=== PATIENT | male | born 1950 | race Caucasian/White ===

== ENCOUNTER 2018-12-24 15:36 | Observation (INO) | payer OTHER, MEDICARE ==
[~2018-12-24 15:36] MED LIST: Iopamidol 370 76% 100 ML VIAL ONE
[2018-12-24 15:58] LABS: #Eosinphils 0.2 thou/uL (0.0-0.7); #Lymphocytes 1.7 thou/uL (1.20-3.40); #Monocytes 0.5 thou/uL (0.11-0.59); #Neutrophils 2.8 thou/uL (1.40-6.50); %Basophils 0.9 % (0.0-1.0); %Eosinophils 4.6 % (0.0-10.0); %Lymphocytes 32.3 % (21.0-51.0); %Monocytes 9.1 % (0.0-10.0); %Neutrophils 53.1 % (42.0-75.0); Hemoglobin 14.1 g/dL (14.0-18.0); Mean Corpuscular HGB CONC 33.7 g/dL (32.0-36.0); Mean Corpuscular Hemoglobin 30.8 pg (27.0-31.0); Mean Corpuscular Volume 91.6 fL (78.0-98.0); Mean Platelet Volume 7.9 fL (7.4-10.4); Platelet Count 255 thou/uL (130-400); RBC Distribution Width 13.1 % (11.5-14.5); Red Blood Cell (RBC) Count 4.59 mill/uL (4.70-6.10); White Blood Cell (WBC) Count 5.2 thou/uL (4.8-10.8)
[2018-12-24 16:08] LABS: INR-International Normal Ratio 2.5; PTT 46.3 SEC (22.9-36.1); Prothrombin Time 26.7 SEC (12.0-14.7)
[2018-12-24] MEDS ORDERED: Nitroglycerin 100MG/250ML BOT 250 ML ONE (16:09)
[2018-12-24] MEDS ORDERED: Verapamil 5 MG/2 ML VIAL ONE (16:09)
[2018-12-24] MEDS ORDERED: Heparin 10,000 UNITS/1 ML VIAL ONE (16:09)
[2018-12-24 16:13] LABS: ALT (SGPT) 33 U/L (8-55); AST (SGOT) 27 U/L (5-34); Albumin 4.3 g/dL (3.4-4.8); Alkaline Phosphatase 64 U/L (40-150); Anion Gap 16 mmol/L (10-20); BUN (Urea Nitrogen) 27 mg/dL (8.4-25.7); Bilirubin, Total 0.5 mg/dL (0.2-1.2); CK (CPK) 347 U/L (30-200); Calc. Creatinine Clearance 0 mL/min (70-130); Calcium 9.8 mg/dL (7.8-10.44); Carbon Dioxide 19 mmol/L (23-31); Chloride 104 mmol/L (98-107); Estimated GFR-MDRD 55; Globulin 3.5 g/dL (2.4-3.5); Glucose 126 mg/dL (80-115); Lipase 113 U/L (8-78); Potassium 3.9 mmol/L (3.5-5.1); Protein, Total 7.8 g/dL (5.8-8.1); Sodium 135 mmol/L (136-145)
--- NOTE | 2018-12-24 17:34 | RAD ---
PORTABLE CHEST 12/24/18 PROVIDED CLINICAL HISTORY: Chest pain. FINDINGS: No comparisons. The cardiac silhouette appears enlarged, which may be at least partially on the basis of portable technique. Median sternotomy changes and changes of prior cardiac valve replacement are noted. External defibrillator pad overlies the right chest. No focal consolidation, pleural fluid or pneumothorax apparent. IMPRESSION: No evidence for an acute cardiopulmonary process. POS: [facility]
[2018-12-24 18:18] VITALS: BMI 35.2
[2018-12-24] MEDS ORDERED: Sodium Chloride 0.9% 1,000 ML IV SCH (18:35)
[2018-12-24] MEDS ORDERED: Nitroglycerin 0.4 MG TAB (25 Tab Bottle) SL PRN (18:35)
[2018-12-24] MEDS ORDERED: Dextrose 5% in Water 1,000 ML IV PRN (21:12)
[2018-12-24] MEDS ORDERED: HumaLOG 300 UNITS/3 ML VIAL SC PRN ×2 (21:12)
[2018-12-24] MEDS ORDERED: Dextrose 50% Abboject 50 ML SYRINGE SLOW IVP PRN (21:12)
[2018-12-24] MEDS ORDERED: Zolpidem Tartrate 5 MG TAB PO PRN (21:12)
--- NOTE | 2018-12-24 21:12 | PDOC.EVN ---
Event Note - Event Note Event Note: CONSULT #[id number]
[2018-12-24] MEDS ORDERED: Ondansetron PF 4 MG/2 ML Vial IVP PRN (21:13)
[2018-12-24] MEDS ORDERED: Acetaminophen 325 MG TAB PO PRN (21:13)
[2018-12-24] MEDS ORDERED: Warfarin Sodium 10 MG TAB PO SCH (22:30)
--- NOTE | 2018-12-24 22:55 | CON ---
DATE OF CONSULTATION: CHIEF COMPLAINT: Chest pain. Consultation being requested by Cardiology service. HISTORY OF PRESENT ILLNESS: This is a 68-year-old male presenting to the hospital with chest pain. The patient was taken to the yard labor supervisor, had a cardiac catheterization done, was found to have 30% stenosis of the left proximal lesion, lesion in the distal RCA of 30% as well and lesion in proximal RCA of 20% stenosis. No stenting was done. The patient at point in time of evaluation in consultation was having no issues or complaints. No chest pain, fevers, shortness of breath, diarrhea, constipation, or abdominal pain. The patient stated that he had a prior medical history of diabetes mellitus, hypertension, hyperlipidemia, as well as a mechanical aortic valve, which was done in 2012. The patient takes warfarin 10 mg daily. Of note, the patient had an INR checked approximately on the 16 of December, which was 2.5. 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 The patient is seen and examined in the patient's room. at bedside. All questions answered. ALLERGIES: NO KNOWN DRUG ALLERGIES. HOME MEDICATIONS: See MAR. FAMILY HISTORY: Positive for hypertension and diabetes. REVIEW OF SYSTEMS: All systems reviewed, pertinent positive in HPI, otherwise negative. PHYSICAL EXAMINATION: VITAL SIGNS: Blood pressure 120/78, temperature of 98.1, heart rate of 66, respiratory rate of 20, O2 saturation 95% on room air. GENERAL: The patient is lying in bed. No acute discomfort. HEENT: Pupils are equal, round, and reactive to light and accommodation. Extraocular muscles intact. Oral cavity moist and pink. NECK: Supple, mobile, nontender. Thyroid appreciated. PULMONARY: Regular respiratory rate. No increase in AP diameter. Clear to auscultation bilaterally. CARDIOVASCULAR: Well-healed surgical scar on sternum noted. S1 and S2. No rubs or gallops. 2/6 systolic ejection murmur appreciated. ABDOMEN: Distended. Positive bowel sounds. Soft, nontender, and rotund. No rebound or guarding. EXTREMITIES: Trace pitting edema. 2+ peripheral pulses noted. NEUROLOGICAL: Cranial nerves 2 through 12 intact. No loss of motor and sensory function. LABORATORY DATA: CBC reviewed. Coagulation panel reviewed. Chemistry panel reviewed. Chest x-ray reviewed. ASSESSMENT: 1. Chest pain. 2. Mechanical aortic valve. 3. Hypertension. 4. Diabetes mellitus type 2. 5. Hyperlipidemia. PLAN: At this point in time, we would continue the patient's home medications. We will provide the patient warfarin. We will also start a sliding scale for his diabetes. INR showed 2.5. We will continue home warfarin. Further management per Cardiology Services. Possible discharge for tomorrow if the patient is stable. Appreciate the consultation. We will follow this patient closely with you, manage diabetic sugars. Case and plan discussed with the patient and at length. They understand and agree with this plan. Job ID: [id number]
--- NOTE | 2018-12-24 23:07 | HP ---
INDICATION FOR ADMISSION: A 68-year-old gentleman who has a history of aortic valve replacement with mechanical aortic valve. Today, he taking pictures of braga and suddenly developed chest pain with shortness of breath radiating to the left arm and to the shoulder. He felt like he was going to pass out. He sat down. He was given aspirin. EMS was called. He was then given nitroglycerin. He felt clammy and diaphoretic. The first EKG showed significant EKG changes with ST-segment depression in the inferior lateral leads and also slight ST elevation in V1 with depressed ST segments in V2 through V6. He presented to the emergency room. He was feeling better. EKG had stabilized, but given the fact that the patient had significant chest pain and EKG changes with a history of some coronary artery disease in the past with aortic valve replacement, he was advised to undergo cardiac catheterization on urgent basis. He was taken to the cardiac landscaping and groundskeeping laborer, where he was prepped and draped in the sterile fashion. The patient was on Coumadin and then using a right radial artery approach, 5-Lebanese introducer sheath was placed in the right radial artery. Using a 4-Lebanese catheter, the procedure was performed and this will follow in the cardiac cath report. Fortunately, there was no significant stenosis noted in the vessels and this will be detailed later. PAST MEDICAL HISTORY: Significant for aortic valve replacement in 2013 due to aortic valve regurgitation. He has also has a left foot ganglion cyst, for which he needs to undergo surgical repair next week. He has had a history of hypertension, hypercholesterolemia, and diabetes. SOCIAL HISTORY: He is . He has 5 children. No heart problems. He has no tobacco or alcohol use. He is retired. FAMILY HISTORY: Noncontributory. ALLERGIES: NONE. PRESENT MEDICATIONS: Include; 1. Coumadin or warfarin 10 mg a day. 2. Lisinopril. 3. Levothyroxine. 4. metformin 5. Tresiba. REVIEW OF SYSTEMS: A 12-point review of systems unremarkable except for what was noted today. PHYSICAL EXAMINATION: GENERAL: Reveals a well-developed, well-nourished gentleman. VITAL SIGNS: Blood pressure 128/84, heart rate was 68. HEENT: Shows head to be normocephalic and atraumatic. Carotid pulses are present. No bruits. CHEST: Clear to auscultation without rales, rhonchi, or wheezing. CARDIOVASCULAR: Reveals a regular rate and rhythm. The aortic valve was audible with clicking noise due to mechanical valve. There were no heaves, thrills, bruits, or rubs noted. ABDOMEN: Soft and nontender with positive bowel sounds. EXTREMITIES: Show no clubbing, cyanosis, or edema. Pedal pulses are difficult to palpate, but femorals and popliteal pulses are normal. The radial pulse is normal. NEUROLOGIC: The patient appears to be intact. SKIN: Warm and dry. IMAGING STUDIES: EKG in the emergency room shows resolution of the EKG changes with no significant EKG changes at this time. The patient has resolved with his chest discomfort. He is from [place] of town and given the fact that this was significant EKG changes and appeared to be unstable angina symptoms, he was advised to undergo cardiac catheterization. He was taken to the cardiac landscaping and groundskeeping laborer and prepped and draped in the sterile fashion. The findings were as follows; he had plaque calcifications noted in the left main, left anterior descending artery, proximal left circumflex, and also right coronary artery from the proximal to distal area. He had no significant flow-limiting disease in the left anterior descending or diagonal branches. There were small diagonal branches. The left circumflex had calcifications and 20% to 30% proximal stenosis, but no distal disease was noted. The obtuse marginal branches are free of any significant flow-limiting disease. The right coronary artery also had tortuosity in the proximal area with some luminal irregularities and distally 20% to 30% stenosis with diffuse irregularities in the distal right coronary artery. There was no evidence of any other significant stenosis noted in the vessels and the posterior lateral branch and posterior descending arteries appeared to be free of any significant stenosis or disease. There was no left ventriculogram performed as the patient does have mechanical aortic valve. We did not want to cross the valve with any type of catheter. IMPRESSION: Acute coronary syndrome, which was relieved. The patient was given aspirin and nitroglycerin and possibly had a small blood clot or plaque disruption, but there is no evidence of any significant stenosis or occlusion at this time and his EKG changes have resolved. We will continue to monitor the patient overnight on the telemetry floor. We will continue to monitor enzymes. At this time, the patient fortunately has stabilized. We will ask the Hospitalist Service to take over the care of the patient since his coronary artery status appears to be stable. Job ID: [id number] MTDD
[2018-12-25 05:39] LABS: #Eosinphils 0.2 thou/uL (0.0-0.7); #Monocytes 0.5 thou/uL (0.11-0.59); #Neutrophils 3.3 thou/uL (1.40-6.50); %Basophils 0.5 % (0.0-1.0); %Eosinophils 4.8 % (0.0-10.0); %Lymphocytes 19.6 % (21.0-51.0); %Monocytes 9.6 % (0.0-10.0); %Neutrophils 65.5 % (42.0-75.0); Hemoglobin 13.5 g/dL (14.0-18.0); Mean Corpuscular HGB CONC 34.4 g/dL (32.0-36.0); Mean Corpuscular Hemoglobin 31.7 pg (27.0-31.0); Mean Corpuscular Volume 92.1 fL (78.0-98.0); Mean Platelet Volume 8.2 fL (7.4-10.4); Platelet Count 228 thou/uL (130-400); Red Blood Cell (RBC) Count 4.25 mill/uL (4.70-6.10)
[2018-12-25 06:02] LABS: ALT (SGPT) 28 U/L (8-55); AST (SGOT) 23 U/L (5-34); Albumin 3.8 g/dL (3.4-4.8); Alkaline Phosphatase 59 U/L (40-150); Anion Gap 11 mmol/L (10-20); BUN (Urea Nitrogen) 22 mg/dL (8.4-25.7); Bilirubin, Total 0.5 mg/dL (0.2-1.2); Calc. Creatinine Clearance 96 mL/min (70-130); Calcium 9.2 mg/dL (7.8-10.44); Carbon Dioxide 22 mmol/L (23-31); Chloride 103 mmol/L (98-107); Estimated GFR-MDRD 68; Glucose 147 mg/dL (80-115); Potassium 3.8 mmol/L (3.5-5.1); Protein, Total 6.8 g/dL (5.8-8.1); Sodium 132 mmol/L (136-145)
[2018-12-25] MEDS ORDERED: INSULIN GLARGINE SC SCH (09:00)
[2018-12-25] MEDS ORDERED: Aspirin Chewable 81 MG TAB PO SCH (09:00)
--- NOTE | 2018-12-25 10:46 | PDOC.CTH ---
Cardiology Progress Note - Subjective The pt seen and examined. No overnight events. No cardiac complaints. - Objective Vital Signs Temp Pulse Resp BP BP Pulse Ox 12/25/18 08:00 97.6 F 61 22 H 133/79 96 12/25/18 06:10 95 12/25/18 05:00 94 L 12/25/18 04:44 96 12/25/18 04:05 97.9 F 66 17 120/79 96 12/25/18 00:12 95 12/24/18 23:35 98.5 F 69 20 126/72 96 12/24/18 22:48 94 L Weight 231 lb 14.4 oz 12/24/18 12/25/18 12/26/18 06:59 06:59 06:59 Intake Total 240 Output Total 2100 Balance -1860 - Physical Examination General/Neuro: alert & oriented x3 Neck: no JVD present Lungs: CTA Heart: RRR Abdomen: soft Extremities: other: (No edema) - Telemetry Telemetry Rhythm: SR - Labs Result Diagrams: 12/25/18 04:59 12/25/18 04:59 Troponin/CKMB Troponin I 0.013 ng/mL (< 0.028) 12/24/18 15:47 - Assessment/Plan 1. CAD with S/p LHC with 30% stenosis in dist RCA, 30% in Lt Cx, and no stenosis in LAD - stable; on ASA. 2. Hx of mechanical AVR in 2012 - on Coumadin 3. HTN - stable; will resume Lisinopril at discharge 4. Hyperlipidemia - on 5. DM type 2 - managed by PCP MAR reviewed * From Cardiac standpoint, the pt is stable to d/c home. The pt will F/u with his Bio Medical Technician in [place], [place] * The prescription of NTG 0.4mg will given to the pt at discharge. Pt. seen and eval. by me. I agree with the A/P by the REPAIR SERVICE DISPATCHER. No further CP. Chest clear. RRR Ok to d/c pt. to home. 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 Review of Systems - Review of Systems Constitutional: reports: no symptoms reported EENTM: reports: no symptoms reported Respiratory: reports: no symptoms reported Cardiac (ROS): reports: no symptoms reported ABD/GI: reports: no symptoms reported : reports: no symptoms reported Musculoskeletal: reports: no symptoms reported Skin: reports: no symptoms reported
[2018-12-25 12:30] VITALS: BP 137/83; TEMP 97.8
[2018-12-25] MEDS ORDERED: Warfarin Sodium 10 MG TAB PO SCH (17:00)
--- NOTE | 2018-12-25 17:39 | DIS ---
DATE OF ADMISSION: 12/24/2018 DATE OF DISCHARGE: 12/25/2018 FINAL DIAGNOSES: 1. Chest pain, resolved, to be caused by a spasm of the coronary arteries. 2. Coronary artery disease with status post LVH with 30% stenosis in distal RCA, 30% in left circumflex, and no stenosis in LAD. 3. History of mechanical aortic valve replacement in 2012, on Coumadin. INR, therapeutic. 4. Hypertension, stable. 5. Hyperlipidemia. 6. Diabetes mellitus, type 2. MACROECONOMICS PROFESSOR: Dr. Garzon, Cardiology Service. PROCEDURE: Cardiac catheterization of the left heart. HOSPITAL COURSE: The patient is a 68-year-old male with history of aortic valve replacement with mechanical aortic valve, who developed chest pain with shortness of breath while taking pictures of braga. The pain was radiating in the left arm and to the shoulder. He felt that he is going to pass out, but he did not. He sat down. He was given aspirin and EMS was called, then he was given nitroglycerin. He felt clammy and diaphoretic. While in the emergency room, his first EKG showed ST-segment depression in inferolateral leads and slight ST elevation in V1 with depressed ST-segment in V2 through V6. The next EKG done in the emergency room showed significant improvement of above-mentioned findings, but because of fact that the patient had significant chest pain and EKG changes with history of some coronary artery disease in the past with aortic valve replacement, he was taken to the catheterization suite and his left heart catheterization was done by Dr. Garzon, who found 20% to 30% stenosis in the distal RCA and 30% in the left circumflex and no stenosis in the LAD. His postprocedure time was uneventful. He had echocardiogram done which showed LVEF of 55% to 60%. Normal right ventricular size and function. Normal right atrium size. Mild to moderate mitral regurgitation. Normally functioning, lifting mechanical prosthetic valve in aortic position and mild tricuspid regurgitation. PHYSICAL EXAMINATION: GENERAL: He is seen and evaluated today. VITAL SIGNS: His blood pressure is 133/79, pulse is 61, respiratory rate is 17, O2 saturation is 96% on room air, and his temperature 97.6. LUNGS: Clear. HEART: S1 and S2 normal. Mechanical valve click is present. ABDOMEN: Soft, nontender. EXTREMITIES: No clubbing, cyanosis, or edema. DISPOSITION: The patient is discharged home in good condition. He was seen by Dr. Garzon and released home today. DISCHARGE MEDICATIONS: The only 2 medications we are adding to his home regimen is aspirin 81 mg once a day and nitroglycerin 0.4 mg tablets as needed. The rest of his home medications, the same. 1. Gabapentin 600 once daily. 2. Invokamet 150/1000 two tablets daily. 3. Tresiba 90 units subcutaneously injection daily. 4. Ozempic 1 mg q.7 days. 5. Omeprazole 20 mg once a day. 6. Lisinopril 20 mg once a day. 7. Warfarin 10 mg once a day. His INR was therapeutic at 2.5. FOLLOWUP: He is going to continue his followup with his bone puller in [place] in 1 week and the patient was seen and examined before his discharge. TIME SPENT: Discharge time is less than 30 minutes. Job ID: [id number]
--- NOTE | 2018-12-26 17:47 | EKG ---
Test Reason : AM EKG Blood Pressure : / mmHG Vent. Rate : 068 BPM Atrial Rate : 068 BPM P-R Int : 264 ms QRS Dur : 088 ms QT Int : 394 ms P-R-T Axes : 033 -20 030 degrees QTc Int : 418 ms Sinus rhythm with 1st degree A-V block Anterior infarct , age undetermined Abnormal ECG When compared with ECG of 24-DEC-2018 15:38, (Unconfirmed) Anterior infarct is now Present Confirmed by DR. Jl VINSON ([id number]) on 12/26/2018 5:47:09 PM Referred By: MARIAM Confirmed By:DR. Jl VINSON
== END 2018-12-25 13:04 | disposition home or self-care (01) ==
LOC: ERS 15:36 → 2SW 17:15
PROVIDERS: ADMIT Internal Medicine Cardiovascular Disease; ATTEND Internal Medicine Cardiovascular Disease
PROC: 4A023N7 Measurement of Cardiac Sampling and Pressure, Left Heart, Percutaneous Approach (ICD-10-PCS; principal; 2018-12-24)
PROC: B2111ZZ Fluoroscopy of Multiple Coronary Arteries using Low Osmolar Contrast (ICD-10-PCS; 2018-12-24)
DX: R07.9 Chest pain, unspecified (principal); I25.10 Atherosclerotic heart disease of native coronary artery without angina pectoris; I24.9 Acute ischemic heart disease, unspecified; I10 Essential (primary) hypertension; E78.5 Hyperlipidemia, unspecified; E11.9 Type 2 diabetes mellitus without complications; E78.00 Pure hypercholesterolemia, unspecified; Z79.01 Long term (current) use of anticoagulants; Z79.84 Long term (current) use of oral hypoglycemic drugs; Z79.899 Other long term (current) drug therapy; Z95.2 Presence of prosthetic heart valve
CPT/HCPCS: 36415; 36416; 71045; 80053; 82550; 83690; 83880; 84484; 85025; 85610; 85730; 93005; 93010; 93306; 93454; 96360; 96361; C1769; G0378; J1644; J1825; Q9967